=== PATIENT | male | born 1950 | race Caucasian/White ===

== ENCOUNTER 2017-06-21 08:50 | Day surgery (SDC) | payer OTHER ==
[~2017-06-21] VITALS: Ht 172.7 cm; Wt 67.8 kg
== END 2017-06-21 14:46 | disposition home or self-care (01) ==
LOC: SSS 08:50
PROC: B02BYZZ Computerized Tomography (CT Scan) of Spinal Cord using Other Contrast (ICD-10-PCS; principal; 2017-06-21)
DX: M54.5 Low back pain (principal); M54.2 Cervicalgia; R29.898 Other symptoms and signs involving the musculoskeletal system; W19.XXXA Unspecified fall, initial encounter; Z88.8 Allergy status to other drugs, medicaments and biological substances; Z88.1 Allergy status to other antibiotic agents; Z79.899 Other long term (current) drug therapy